=== PATIENT | male | born 1950 | race Caucasian/White ===

== ENCOUNTER → 2020-03-27 | Outpatient (CLI) | payer OTHER | LOC: SJCVC 13:37 | PROVIDERS: ATTEND Internal Medicine Cardiovascular Disease | DX: I49.5 Sick sinus syndrome (principal); R55 Syncope and collapse; I10 Essential (primary) hypertension; E78.5 Hyperlipidemia, unspecified; M1A.9XX1 Chronic gout, unspecified, with tophus (tophi); Z79.899 Other long term (current) drug therapy ==